=== PATIENT | female | born 2000 | race Caucasian/White ===

== ENCOUNTER → 2021-11-28 | Outpatient (CLI) | payer BC ==
[2021-11-28 10:00] LABS: PROLACTIN 11.9 ng/mL (5.18-26.53); THYROID STIMULATING HORMONE 0.781 uIU/mL (0.350-4.940)
[2021-11-28 23:17] LABS: CORTISOL, AM (0800) <1 ug/dL (3-20)
[2021-11-28 23:31] LABS: INSULIN 22 uIU/mL (2-23); T3 TOTAL 117 ng/dL (35-193)
[2021-11-28 23:58] LABS: C-PEPTIDE,SERUM 4.74 ng/mL (0.80-3.90)
== END ==
LOC: COL.LAB 08:00
PROVIDERS: Internal Medicine
DX: E07.9 Disorder of thyroid, unspecified (principal); E27.9 Disorder of adrenal gland, unspecified; E23.7 Disorder of pituitary gland, unspecified; E88.81 Metabolic syndrome and other insulin resistance

== ENCOUNTER → 2021-12-10 | Outpatient (CLI) | payer BC ==
[2021-12-12 22:29] LABS: CATECHOLAMINES-HRS COLLECTED 24 (())
[2021-12-18 15:21] LABS: URINE VOLUME VMA 1125 mL (())
[2021-12-19 13:05] LABS: DOPAMINE 357 mcg/24 h (65-400); EPINEPHRINE 7.1 mcg/24 h (<21); NOREPINEPHRINE 50 mcg/24 h (15-80); URINE VOLUME 1125 mL (())
== END ==
LOC: COL.LAB 16:59
PROVIDERS: Internal Medicine
DX: E27.9 Disorder of adrenal gland, unspecified (principal)

== ENCOUNTER 2023-08-15 18:05 | Outpatient (CLI) | payer BC ==
[~2023-08-15] VITALS: Ht 167.6 cm; Wt 130.0 kg
[2023-08-15 18:30] VITALS: BP 128/73; PULSE 116; TEMP 98
[2023-08-15] MEDS ORDERED: LR 1,000 ML IV PRN (18:30)
--- NOTE | 2023-08-15 18:35 | NUR ---
PT PRESENTS TO L&D WITH C/O PATRICK ALL DAY AND SOME DIZZINESS. SHE TOOK TYLENOL 1000 MG AT 1500 BUT IT DID NOT HELP. HER BP AT HOME WAS 150/89. SHE IS NOT SURE IF IT IS ACCURATE. SHE WAS TOLD BY HER OB IF SHE HAS PATRICK, DIZZINESS OR BLURRED VISION TO COME IN AND BE CHECKED. SHE HAS DONE A 24 HR URINE ON WEDNESDAY/WEDNESDAY. HER TOTAL PROTEIN WAS 178, CREATINE 0.55, CREATINE CLEARANCE 217. SHE HAS HISIMOTOS AND TAKE LEVOTHYROXINE 50 MG DAILY. SHE HAS TACKYSINUS BUT HER METROPOLOL WAS STOPPED WHEN SHE BECAME . SHE HAS HX OF PATRICK AND TAKES TYLENOL AT HOME. SHE DENIES CTX'S, OR VAG BLEEDING. FHR CATEGORY 1. NO CTX'S NOTED.
[2023-08-15 18:45] VITALS: BP 126/77; PULSE 107
[2023-08-15 19:00] VITALS: BP 121/71; PULSE 110
[2023-08-15] MEDS ORDERED: traMADol 50 MG TAB PO ONE (19:00)
--- NOTE | 2023-08-15 19:00 | NUR ---
DR BARON YEPEZ NOTIFIED OF PT'S ARRIVAL AND COMPLAINTS. ORDERS NOTED FOR TRAMADOL 50 MG PO NOW, GET 2 MORE BP'S AND ADEQUATE STRIP. MAY DC TO HOME WITH FOLLOW UP WITH HER OB THIS WEEK. DRINK MORE WATER, SHE MAY TAKE OTC MAGNESIUM TO HELP WITH THE PATRICK ALSO.
[2023-08-15 19:12] VITALS: BP 125/71; PULSE 108; TEMP 98
[2023-08-15 19:15] VITALS: BP 125/71; PULSE 98
--- NOTE | 2023-08-15 19:15 | NUR ---
PT LEFT UNIT AMB OUT WITH HER . PT IS NOT IN LABOR AND WAS GIVEN DISCHARGE INSTRUCTIONS TO FOLLOW UP WITH HER OB THIS WEEK, REST AND DRINK MORE WATER. PT STATES SHE HAS BEEN BUSY THIS WEEKEND AND WORKING ALOT AND FEELS STRESSED FROM EVERYTHING. SHE IS GOING TO TALK TO HER DOCTOR ON HER NEXT VISIT WEDNESDAY.
== END 2023-08-15 19:16 | disposition home or self-care (01) ==
LOC: LDRO 18:05
DX: O16.9 Unspecified maternal hypertension, unspecified trimester (principal); Z3A.00 Weeks of gestation of pregnancy not specified

== ENCOUNTER 2023-10-27 05:14 | Inpatient (IN) | payer BC ==
[~2023-10-27] VITALS: Ht 167.6 cm; Wt 133.2 kg
[2023-10-27] VITALS (8 sets, daily range): BP systolic 118–146; BP diastolic 58–83; PULSE 10–108; TEMP 98.5
[2023-10-27] MEDS ORDERED: miSOPROStol 25 MCG (1/4th of 100 MCG) TAB VG SCH (19:00)
[2023-10-27] MEDS ORDERED: Penicillin G Potassium 2,500,000 UNITS in NS 100 ML IV SCH (19:00)
[2023-10-27] MEDS ORDERED: Terbutaline 1 MG/ML 1 ML AMP SQ PRN (19:00)
[2023-10-27] MEDS ORDERED: Penicillin G Potassium 5,000,000 UNITS in NS 100 ML IV ONE (19:00)
[2023-10-27] MEDS ORDERED: LR & Oxytocin 500 ML IV SCH (19:00)
[2023-10-27] MEDS ORDERED: miSOPROStol 25 MCG (1/4th of 100 MCG) TAB VG ONE (19:00)
[2023-10-27] MEDS ORDERED: LR 1,000 ML IV SCH (19:00)
[2023-10-27 19:37] LABS: BASO % 0.2 % (0.0-2.0); EOS % 0.3 % (0.0-4.0); GRAN # 11.1 K/mm3 (1.4-6.5); GRAN % 75.5 % (42.2-75.2); LYMPH # 2.4 K/mm3 (1.2-3.4); LYMPH % 16.2 % (20.0-51.0); MEAN CELL VOLUME 89 fl (80.0-100.0); MEAN CORPUSCULAR HEMOGLOBIN 29 pg (27-31); MEAN CORPUSCULAR HGB CONC 33 g/dl (33.0-37.0); MEAN PLATELET VOLUME 10.5 fl (7.4-10.4); PLATELET COUNT 378 K/mm3 (130-400); RED BLOOD COUNT 4.09 M/mm3 (4.10-5.30); REDCELL DISTRIBUTION WIDTH-CV 12.7 % (11.5-14.5)
[2023-10-27 19:40] LABS: HEMATOCRIT 36.2 % (37.0-47.0)
[2023-10-28] VITALS (52 sets, daily range): BP systolic 91–185; BP diastolic 53–98; PULSE 77–125; TEMP 98.4–98.7
[2023-10-28] MEDS ORDERED: LEVOXYL0.05 MG PO (00:41)
--- NOTE | 2023-10-28 01:00 | NUR ---
DIFFICULTY TRACING HEART RATE DUE TO MATERNAL POSITIONING. THIS NURSE AT BEDSIDE ADJUSTING MONITORS.
[2023-10-28] MEDS ORDERED: ROPivacaine PF 0.2% 200 ML IV ONE (03:15)
[2023-10-28] MEDS ORDERED: Lidocaine PF 2% (20 MG/ML) 5 ML VIAL ONE (03:18)
--- NOTE | 2023-10-28 03:40 | NUR ---
0315- PATIENT SITTING ON EDGE OF BED. DIFFICULTY TRACING HEART RATE DUE TO MATERNAL POSITIONING. PULSE OX APPLIED. ANDRES CORCORAN AT BEDSIDE EXPLAINING PROCEDURE TO PATIENT. 0327- SINGLE SHOT ADMINISTERED BY ANDRES CORCORAN. 0340- PATIENT REPOSITIONED IN SEMIFOWLERS. PLAN OF CARE EXPLAINED TO PATIENT AND SPOUSE. QUESTIONS INVITED AND ANSWERED.
--- NOTE | 2023-10-28 03:45 | NUR ---
0130- DIFFICULTY TRACING HEART RATE DUE TO MATERNAL POSITIONING. THIS NURSE AT BEDSIDE ADJUSTING MONITORS. 0200- DIFFICULTY TRACING HEART RATE DUE TO MATERNAL POSITIONING. THIS NURSE AT BEDSIDE ADJUSTING MONITORS. 0228- DR. TURNER UPDATE ON DIFFICULTY TRACING HEART RATE DUE TO MATERNAL POSITIONING AND MATERNAL DISCOMFORT WITH CONTRACTIONS. DR. TURNER RECOMMENDS PATIENT GET AN EPIDURAL. PATIENT VERBALIZES UNDERSTANDING AND AGREES TO EPIDURAL. 0300- THIS NURSE AT BEDSIDE ADJUSTING MONITORS DUE TO DIFFICULTY TRACING HEART TONES. 0330- DIFFICULTY TRACING HEART TONES DUE TO MATERNAL POSITIONING AND MATERNAL DISCOMFORT WITH CONTRACTIONS. 0345- DIFFICULTY TRACING HEART TONES DUE TO MATERNAL POSITIONING. THIS NURSE AT BEDSIDE TO ADJUST MONITORS.
[2023-10-28] MEDS ORDERED: ePHEDrine 50 MG/10 ML VIAL IV PRN (04:00)
[2023-10-28] MEDS ORDERED: diphenhydrAMINE 50 MG/ML 1 ML VIAL IV PRN (04:00)
[2023-10-28] MEDS ORDERED: Naloxone 0.4 MG/ML VIAL IV PRN ×2 (04:00→13:30)
[2023-10-28] MEDS ORDERED: Ondansetron 4 MG/2 ML VIAL IV PRN (04:00)
[2023-10-28] MEDS ORDERED: diphenhydrAMINE 25 MG CAP PO PRN (04:00)
[2023-10-28] MEDS ORDERED: Penicillin G Potassium 5,000,000 UNITS in NS 100 ML IV ONE (04:30)
--- NOTE | 2023-10-28 06:15 | NUR ---
REPORT ON PT GIVEN PER PCR.MONIQUE. REPORTED THAT PT HAD NOT BEEN ABLE TO SLEEP ALL NIGHT AND PT NOW ASLEEP AND COMFORTABLE. EFM CAT 1 AND PITOCIN LEFT AT 4 PER ORDERS. PT NOT REPORTING ANY PAIN, EPIDURAL ADMINSTERED AT 0330. PT VS STABLE AND SPOUSE SUPPORTIVE AT BEDSIDE.
--- NOTE | 2023-10-28 07:00 | NUR ---
THIS RN AT PT BEDSIDE CHANGING POSITIONS PER PT REQUEST, PT TURNED TO RIGHT LATERAL WITH A PEANUT BALL. FHR DIFFICULT TO TRACE AT THIS TIME, THIS RN REMAINS AT PT BEDSIDE TO GET ACCURATE TRACE ON FHR, PT VS STABLE, PT AWAKE AND ALERT X3, PT NOT REPORTING ANY PAIN AT THIS TIME.
--- NOTE | 2023-10-28 07:45 | NUR ---
0735 THIS RN AT PT BEDSIDE ATTEMPTING TO TRACE FHR AFTER CHANGING PT POSITION. PT VS STABLE, PT AWAKE AND ALERT X3 NOT REPORTING PAIN BUT "CAN FEEL IT TIGHTEN SOMETIMES" WHEN IT SHOWS CONTRACTIONS ON TOCO MONITOR. 0742 THIS RN ADJUSTS MONITOR AND ABLE TO TRACE FHR. BASELINE AROUND 125-130'S, ACCELS PRESENT, NO DECELS, AND MODERATE VARIABILITY. PT VS STABLE AND SPOUSE SUPPORTIVE AT BEDSIDE.
--- NOTE | 2023-10-28 09:30 | NUR ---
904 THIS RN AT PT BEDSIDE DUE TO PT REQUESTING POSITION CHANGE, PT REPORTS PAIN ON HER LEFT LOWER SIDE AND LOWER BACK WITH CONTRACTIONS. RECURRENT LATE DECELERATIONS OCCURING SO THIS RN STARTS PT FLUID BOLUS AND TURNS PT ON LEFT SIDE WITH RIGHT LEG IN STIRRUP. 929 FHR STILL HAVING RECURRENT LATE DECELERATIONS, THIS RN STOPS PITOCIN. NOTIFIED. ORDERS TO RESTART PITOCIN AT 2 WHEN FHR IS STABLE. PT REPOSITIONED TO RIGHT SIDE PEANUT BALL AND COMFORTABLE. PT VS STABLE, AWAKE AND ALERT X3.
--- NOTE | 2023-10-28 10:00 | NUR ---
UNABLE TO TRACE DUE TO PT POSITION AND HABITUS, PT SHAKING AND BP CUFF UNABLE TO ACCURATELY TRACE BLOOD PRESSURES. THIS RN AT PT BEDSIDE ATTEMPTING TO TRACE VS, PT AWAKE AND ALERT X3
--- NOTE | 2023-10-28 12:50 | NUR ---
1200 SVE PER /+1. PT ROOM SET FOR DELIVERY, PT AND PT SPOUSE UNDERSTANDING OF DELIVERY PLAN OF CARE AND PT UNDERSTANDING TO PUSHING ACTIONS. PT VS STABLE, EFM CAT 1, PT POSITIONED ON BACK FOR PUSHING WITH THIS RN HOLDING PT LEFT LEG AND PT SPOUSE HOLDING RIGHT LEG. CHARGE NURSE AND NURSERY NURSE NOTIFIED OF COMPLETE SVE. 1210 PT BEGINS PUSHING AND TOLERATES WELL. PT VS STABLE, PT REPORTS NO PAIN, FHR BASELINE 130'S WITH MODERATE VARIABILITY, ADEQUATE ACCELS, INTERMITTENT VARIABLES. 1235 AT PT BEDSIDE FOR DELIVERY, PT TOLERATING PUSHING WELL. PT VS STABLE, FHR BASELINE 130'S WITH EARLY DECELERATIONS, ACCELS, MODERATE VARIABILITY. PT SPOUSE SUPPORTIVE AT BEDSIDE. CHARGE NURSE AND NURSERY NURSE NOTIFIED AND AT PT BEDSIDE FOR DELIVERY. 1250 OF VIABLE MALE INFANT PER . INFANT PLACED ON MATERNAL CHEST, CORD CLAMPED AND CUT PER PT SPOUSE, INFANT CARE ASSUMED OVER TO NURSERY NURSE. PT VS STABLE AND AWAKE AND ALERT X3. 1253 OF PLACENTA PER . BEGINS 1ST DEGREE REPAIR. THIS RN MASSAGES PT FUNDUS FIRM AT UMBILICUS, SCANT LOCHIA, NO CLOTS. PT VS STABLE, AWAKE AND ALERT X3. USED A STRAIGHT CATH TO EMPTY PT BLADDER. PITOCIN BEGUN. PT SPOUSE SUPPORTIVE AT BEDSIDE. 1315 PT REPOSITIONED COMFORTABLY AFTER DELIVERY. ROOM CLEANED AFTER DELIVERY. PT VS STABLE, FUNDUS FIRM AT UMBILICUS, SCANT LOCHIA, NO CLOTS, ICE PACK PAD PLACED ON PT PERINEUM. RECOVERY BEGUN
[2023-10-28] MEDS ORDERED: Phenylephrine/Mineral Oil/Petrolatum 57 GM TUBE RC PRN (13:30)
[2023-10-28] MEDS ORDERED: Acetaminophen 500 MG TAB PO SCH (13:30)
[2023-10-28] MEDS ORDERED: Loratadine 10 MG TAB PO PRN (13:30)
[2023-10-28] MEDS ORDERED: Magnes Hydrox (MOM) 80 MG/ML 30 ML CUP PO PRN (13:30)
[2023-10-28] MEDS ORDERED: Ibuprofen 800 MG TAB PO SCH (13:30)
[2023-10-28] MEDS ORDERED: Mag/Al Hydrox/Simeth Susp 30 ML CUP PO PRN (13:30)
[2023-10-28] MEDS ORDERED: Measles/Mumps/Rubella Virus Vaccine Live w Diluent 0.5 ML VIAL SQ SCH (13:30)
[2023-10-28] MEDS ORDERED: Witch Hazel 50% Pads Bulk TUB TP PRN (13:30)
[2023-10-28] MEDS ORDERED: Sennosides/Docusate 8.6-50 MG TAB PO SCH (17:00)
[2023-10-28] MEDS ORDERED: oxyCODONE 5 MG TAB PO PRN (19:00)
[2023-10-28] MEDS ORDERED: IBU800 M1 PO (20:43)
[2023-10-28] MEDS ORDERED: traZODone 50 MG TAB PO PRN (21:00)
--- NOTE | 2023-10-29 06:20 | NUR ---
THIS RN RECEIVES REPORT PER PCR.MONIQUE PT SLEEPING, VS STABLE, NOT CURRENTLY REPORTING ANY PAIN.
[2023-10-29 07:16] VITALS: BP 114/65; PULSE 82; TEMP 98.2
--- NOTE | 2023-10-29 09:33 | NUR ---
Initial visit; Parents thanked Polygraph Examiner for looking in on them and offering congratulations and God's blessings for the of their son. Polygraph Examiner thanked family for choosing [facility]. They stated their experince here has been very good.
--- NOTE | 2023-10-29 16:23 | NUR ---
PT UNDERSTANDING VERBALLY TO DISCHARGE AND DISCHARGE INSTRUCTIONS, SIGNED PAPERWORK. INFANT CHECKED IN CAR SEAT CARRIER PER THIS RN AND STABLE. PT VS STABLE AND AWAKE AND ALERT X3. PT AND PT SPOUSE WITH AMBULATED OFF UNIT WITH STAFF TO CAR SAFELY.
== END 2023-10-29 16:23 | disposition home or self-care (01) | DRG 807 ==
LOC: OB 05:14 → LDR 18:43 → OB 10-28 17:00
PROVIDERS: ADMIT Student in an Organized Health Care Education/Training Program
PROC: 10E0XZZ Delivery of Products of Conception, External Approach (ICD-10-PCS; principal; 2023-10-28)
PROC: 3E033VJ Introduction of Other Hormone into Peripheral Vein, Percutaneous Approach (ICD-10-PCS; 2023-10-28)
PROC: 10907ZC Drainage of Amniotic Fluid, Therapeutic from Products of Conception, Via Natural or Artificial Opening (ICD-10-PCS; 2023-10-28)
PROC: 3E0P7VZ Introduction of Hormone into Female Reproductive, Via Natural or Artificial Opening (ICD-10-PCS; 2023-10-28)
DX: O99.824 Streptococcus B carrier state complicating childbirth (principal); Z37.0 Single live birth; Z3A.39 39 weeks gestation of pregnancy; O77.0 Labor and delivery complicated by meconium in amniotic fluid; O99.284 Endocrine, nutritional and metabolic diseases complicating childbirth; E03.9 Hypothyroidism, unspecified; E74.39 Other disorders of intestinal carbohydrate absorption; O76 Abnormality in fetal heart rate and rhythm complicating labor and delivery; O69.81X0 Labor and delivery complicated by cord around neck, without compression, not applicable or unspecified; Z88.8 Allergy status to other drugs, medicaments and biological substances; Z79.890 Hormone replacement therapy
CPT/HCPCS: J2405; J2540; J2590; J2795; J7120

== ENCOUNTER 2023-11-10 16:15 | Emergency (ER) | payer OTHER, BC ==
[~2023-11-10] VITALS: Ht 165.1 cm; Wt 122.7 kg
[~2023-11-10 16:15] MED LIST: IBU800 M1 PO; LEVOXYL0.05 MG PO
[2023-11-10 16:22] VITALS: TEMP 102.4
[2023-11-10] MEDS ORDERED: NS 1,000 ML IV ONE (16:45)
[2023-11-10] MEDS ORDERED: Ketorolac 15 MG/ML VIAL IV ONE (17:00)
[2023-11-10] MEDS ORDERED: Ondansetron 4 MG/2 ML VIAL IV ONE (17:00)
[2023-11-10 17:04] LABS: BASO % 0.3 % (0.0-2.0); EOS # 0.2 K/mm3 (0.0-0.7); GRAN # 10.1 K/mm3 (1.4-6.5); GRAN % 83.2 % (42.2-75.2); HEMATOCRIT 37.7 % (37.0-47.0); HEMOGLOBIN 12.3 g/dl (12.5-16.0); LYMPH % 7.9 % (20.0-51.0); MEAN CELL VOLUME 88 fl (80.0-100.0); MEAN CORPUSCULAR HEMOGLOBIN 29 pg (27-31); MEAN CORPUSCULAR HGB CONC 33 g/dl (33.0-37.0); MONO # 0.7 K/mm3 (0.1-0.6); MONO % 6.1 % (1.7-9.3); PLATELET COUNT 343 K/mm3 (130-400); RED BLOOD COUNT 4.31 M/mm3 (4.10-5.30)
[2023-11-10 17:27] LABS: ALBUMIN 3.1 g/dL (3.5-5.0); BILIRUBIN,TOTAL 0.5 mg/dL (0.2-1.2); C-REACTIVE PROTEIN 16.07 mg/dL (0.00-0.50); CALCIUM 9.1 mg/dL (8.4-10.2); CREATININE, serum 0.86 mg/dL (0.57-1.11); POTASSIUM 3.8 mEq/L (3.5-4.5); TOTAL PROTEIN 6.7 g/dl (6.2-8.1)
[2023-11-10 18:41] LABS: COLLECTION METHOD CLEAN CATCH
[2023-11-10 18:47] LABS: PH 5.5 (5.0-8.5); URINE APPEARANCE CLEAR (CLEAR/HAZY); URINE BLOOD 3+ (NEGATIVE); URINE COLOR YELLOW (YELLOW); URINE GLUCOSE NEGATIVE (NEGATIVE); URINE KETONE 1+ (NEGATIVE); URINE NITRATE NEGATIVE (NEGATIVE); URINE PROTEIN(semi-quant) 1+ (NEGATIVE); URINE UROBILINOGEN 0.2 E.U/dL (0.2-1.0)
[2023-11-10 19:04] VITALS: BP 119/74; PULSE 97
== END 2023-11-10 19:10 | disposition home or self-care (01) ==
LOC: COL.ER 16:15
PROVIDERS: Nurse Practitioner
DX: N61.0 Mastitis without abscess (principal)
CPT/HCPCS: J1885; J2405; J7030